=== PATIENT | male | born 1995 | race African-American/Black ===

== ENCOUNTER 2021-12-29 01:07 | Emergency (ER) | payer SELFPAY ==
--- NOTE | 2021-12-29 01:23 | ER ---
Nurse's Notes [facility] Name: Madisyn Velasco Age: 26 yrs Sex: Male : 1995 Arrival Date: 12/29/2021 Time: 01:09 Bed 5 Private MD: Diagnosis: Puncture wound without foreign body of foot Presentation: 12/29 01:20 Chief complaint: Patient states: I stepped on a farzana rake earlier today that went jb4 through my shoe. Coronavirus screen: At this time, the client does not indicate any symptoms associated with coronavirus-19. Ebola Screen: No symptoms or risks identified at this time. Initial Sepsis Screen: Does the patient meet any 2 criteria? No. Patient's initial sepsis screen is negative. Does the patient have a suspected source of infection? No. Patient's initial sepsis screen is negative. Risk Assessment: Do you want to hurt yourself or someone else? Patient reports no desire to harm self or others. Onset of symptoms was December 29, 2021. Transition of care: patient was not received from another setting of care. 01:20 Method Of Arrival: Ambulatory jb4 01:20 Acuity: NOE 4 jb4 Historical: - Allergies: 01:21 No Known Allergies; jb4 - Home Meds: 01:21 None [Active]; jb4 - PMHx: 01:21 None; jb4 - PSHx: 01:21 None; jb4 - Immunization history:: Adult Immunizations up to date, Last tetanus immunization: not immunized. - Social history:: Smoking status: Patient denies any tobacco usage or history of. - Family history:: not pertinent. - Hospitalizations: : No recent hospitalization is reported. Screenin:41 Abuse screen: Denies threats or abuse. Denies injuries from another. Nutritional as6 screening: No deficits noted. Tuberculosis screening: No symptoms or risk factors identified. Fall Risk None identified. Assessment: 01:42 General: Appears in no apparent distress. Behavior is calm, cooperative. Pain: as6 Complains of pain in ball of left foot. Neuro: Reeder Agitation-Sedation Scale (RASS): 0 - Alert and Calm Level of Consciousness is awake, alert, obeys commands, Oriented to person, place, time, situation. Respiratory: Respiratory effort is even, unlabored. Derm: Wound noted ball of left foot. Vital Signs: 01:20 BP 124 / 93; Pulse 86; Resp 16; Temp 98.0(TE); Pulse Ox 100% on R/A; Weight 86.18 kg jb4 (R); Height 6 ft. 1 in. (185.42 cm) (R); 01:20 Body Mass Index 25.07 (86.18 kg, 185.42 cm) 4 ED Course: 01:09 Patient arrived in ED. 2 01:14 Shorty Chris MD is Attending Physician. rn 01:21 Triage completed. 4 01:21 Arm band placed on right wrist. jb4 01:32 Regis Craig, LILIANE is Primary Nurse. as6 01:41 Bed in low position. Call light in reach. Side rails up X 1. Pulse ox on. NIBP on. as6 01:41 No provider procedures requiring assistance completed. Patient did not have IV access as6 during this emergency room visit. 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 Exp: 10/04/2023. Lot as6 #: [id number]. } Route: IM; Site: right deltoid; 01:43 Follow up: Response: No adverse reaction as6 Medication: 01:42 Vaccine Information Statement (VIS) provided today. Questions and/or concerns as6 addressed. VIS edition date: February 14, 2021. Outcome: 01:22 Discharge ordered by . rn 01:41 Discharged to home ambulatory. as6 01:41 Condition: stable 01:41 Discharge instructions given to patient, Instructed on discharge instructions, follow up and referral plans. medication usage, wound care, Demonstrated understanding of instructions, follow-up care, medications, wound care, Prescriptions given X 2. 01:44 Patient left the ED. as6 Signatures: Shorty Chris MD MD rn Bryson, James, RN RN jb4 Alyssa Putnam [facility] Regis Craig, LILIANE MOMIN as6
--- NOTE | 2021-12-29 01:23 | EDPHYS ---
Physician Documentation [facility] Name: Madisyn Velasco Age: 26 yrs Sex: Male : 1995 Arrival Date: 12/29/2021 Time: 01:09 Bed 5 Private MD: ED Physician Shorty Chris HPI: 12/29 01:19 This 26 yrs old Black Male presents to ER via Unassigned with complaints of Puncture pattern changer To Foot. 01:20 The patient presents with a puncture wound, rake. The complaints affect the left foot. rn Onset: The symptoms/episode began/occurred yesterday. Modifying factors: The symptoms are alleviated by nothing, the symptoms are aggravated by weight bearing. Associated signs and symptoms: Pertinent negatives: fever, warmth, weakness. Severity of symptoms: At their worst the symptoms were mild, in the emergency department the symptoms are unchanged. The patient has not experienced similar symptoms in the past. The patient has not recently seen a physician. Pt reports stepped on farzana rake, went through slide sole, did not go through foot, + increased pain with walking so came in for tetanus shot.. Historical: - Allergies: 01:21 No Known Allergies; jb4 - Home Meds: 01:21 None [Active]; jb4 - PMHx: :21 None; jb4 - PSHx: 01:21 None; jb4 - Immunization history:: Adult Immunizations up to date, Last tetanus immunization: not immunized. - Social history:: Smoking status: Patient denies any tobacco usage or history of. - Family history:: not pertinent. - Hospitalizations: : No recent hospitalization is reported. ROS: 01:20 Constitutional: Negative for fever, chills, and weight loss, MS/Extremity: + puncture manager international to left foot Exam: 01:20 Constitutional: This is a well developed, well nourished patient who is awake, alert, rn and in no acute distress. Skin: Warm, dry, no swelling, + small puncture wound to bottom of left foot, no drainage or swelling, no fluctuance. Vital Signs: 01:20 BP 124 / 93; Pulse 86; Resp 16; Temp 98.0(TE); Pulse Ox 100% on R/A; Weight 86.18 kg jb4 (R); Height 6 ft. 1 in. (185.42 cm) (R); 01:20 Body Mass Index 25.07 (86.18 kg, 185.42 cm) jb4 MDM: 01:14 Patient medically screened. rn 01:20 Differential diagnosis: puncture wound. Data reviewed: vital signs, nurses notes, and rn as a result, I will discharge patient. Counseling: I had a detailed discussion with the patient and/or guardian regarding: the historical points, exam findings, and any diagnostic results supporting the discharge/admit diagnosis, the need for outpatient follow up, to return to the emergency department if symptoms worsen or persist or if there are any questions or concerns that arise at home. Special discussion: I discussed with the patient/guardian in detail that at this point there is no indication for admission to the hospital. It is understood, however, that if the symptoms persist or worsen the patient needs to return immediately for re-evaluation. Administered Medications: :41 Drug: Doxycycline 100 mg Route: PO; as6 :43 Follow up: Response: No adverse reaction as6 :41 Drug: LevOfloxacin 500 mg Route: PO; as6 :43 Follow up: Response: No adverse reaction as6 :41 Drug: Tetanus Toxoid,Adsorbed 0.5 ml {[employer]s Superintendent: [employer]. Exp: 10/04/2023. Lot as6 #: [id number]. } Route: IM; Site: right deltoid; 43 Follow up: Response: No adverse reaction as6 Disposition Summary: 12/29/21 01:22 Discharge Ordered Location: Home rn Problem: new rn Symptoms: have improved rn Condition: Stable rn Diagnosis - Puncture wound without foreign body of foot rn Followup: rn - With: Private Physician - When: As needed - Reason: Recheck today's complaints, Re-evaluation by your physician Discharge Instructions: - Discharge Summary Sheet rn - Puncture Wound rn Forms: - Medication Reconciliation Form rn - Thank You Letter rn - Antibiotic furnace helper - Prescription Opioid Use rn Prescriptions: - Doxycycline Monohydrate 100 mg Oral Tablet - take 1 tablet by ORAL route every 12 hours for 10 days; 20 tablet; Refills: 0, rn Product Selection Permitted - levofloxacin 500 mg Oral Tablet - take 1 tablet by ORAL route once daily for 10 days; 10 tablet; Refills: 0, rn Product Selection Permitted Signatures: Shorty Chris MD MD rn Bryson, James, RN RN jb4 Slawson, [place], RN RN as6
[2021-12-29] MEDS ORDERED: TETANUS & DIPHTHERIA TOX,ADULT 0.5 ML VIAL ONE (01:40)
[2021-12-29] MEDS ORDERED: DOXYCYCLINE 100 MG CAP PO ONE (01:40)
[2021-12-29] MEDS ORDERED: levoFLOXacin 250 MG TAB ONE (01:40)
[2021-12-29 01:49] VITALS: BP 124/93; TEMP 98; O2SAT 100
== END 2021-12-29 01:44 | disposition home or self-care (01) ==
LOC: ER 01:07
DX: S91.332A Puncture wound without foreign body, left foot, initial encounter (principal); Z23 Encounter for immunization
CPT/HCPCS: 90471; 90714; 99283